=== PATIENT | female | born 1995 | race Caucasian/White ===

== ENCOUNTER → 2020-03-18 | Day surgery (SDC) | payer OTHER ==
[~2020-03-18] MED LIST: CEPHALEXIN500 MG PO; NUVARING VAGIN1 EACH VG
[2020-03-18 09:11] LABS: HCG (URINE) SCREEN NEGATIVE (NEGATIVE)
[2020-03-18 09:38] LABS: HCT 39.4 % (37.0-47.0); HGB 13.2 g/dl (12.5-16.0); MCH 30.1 pg (25.0-31.0); MCHC 33.5 g/dL (32.0-36.0); MCV 89.7 fL (78.0-100.0); MPV 11.4 fL (6.0-9.5); RBC 4.39 M/uL (4.20-5.40); WBC 8.1 K/uL (4.0-10.5)
[2020-03-18 09:56] LABS: ALBUMIN 3.3 g/dL (3.4-5.0); BILIRUBIN - TOTAL 0.2 mg/dL (0.2-1.0); BUN/CREAT RATIO (CALC) 15.4 RATIO; CREATININE 0.78 mg/dL (0.51-0.95); GLOBULIN (CALCULATION) 3.7 g/dL; POTASSIUM 4.4 mmol/L (3.5-5.1)
== END | disposition home or self-care (01) ==
LOC: FAS 03-08 09:00
PROVIDERS: Surgery
DX: K31.89 Other diseases of stomach and duodenum (principal); K21.9 Gastro-esophageal reflux disease without esophagitis; F17.290 Nicotine dependence, other tobacco product, uncomplicated; J45.909 Unspecified asthma, uncomplicated; F41.9 Anxiety disorder, unspecified; F31.9 Bipolar disorder, unspecified; Z91.5 Personal history of self-harm; Z79.899 Other long term (current) drug therapy
CPT/HCPCS: 36415; 80053; 84703; J2250; J2704; J7120

== ENCOUNTER 2020-06-13 16:04 | Emergency (ER) | payer OTHER ==
[~2020-06-13 16:04] MED LIST changes: -CEPHALEXIN500 MG PO
[2020-06-13] MEDS ORDERED: CEPHALEXIN500 MG PO (17:18)
== END 2020-06-13 17:22 | disposition home or self-care (01) ==
LOC: FER 16:04
DX: S61.214A Laceration without foreign body of right ring finger without damage to nail, initial encounter (principal); Z23 Encounter for immunization; W25.XXXA Contact with sharp glass, initial encounter; Y92.009 Unspecified place in unspecified non-institutional (private) residence as the place of occurrence of the external cause
CPT/HCPCS: 90471; 90715